=== PATIENT | female | born 1990 | race Two or more races ===

== ENCOUNTER 2022-09-03 12:44 | Observation (INO) | payer SELFPAY ==
[~2022-09-03] VITALS: Ht 408.9 cm; Wt 98.0 kg
[2022-09-03 14:16] LABS: Urine Bacteria MANY /hpf (None Seen); Urine Blood Negative /uL (Negative); Urine Specific Gravity 1.013 (1.001-1.035); Urine WBC 11 /hpf (0 - 5)
== END 2022-09-03 14:58 | disposition home or self-care (01) ==
LOC: LDRP 12:44 → UNDOADMOB 12:44 → LDRP 13:28 → UNDODISOB 14:58
PROVIDERS: ADMIT Obstetrics & Gynecology; ATTEND Obstetrics & Gynecology
DX: O62.9 Abnormality of forces of labor, unspecified (principal); Z3A.37 37 weeks gestation of pregnancy; Z98.891 History of uterine scar from previous surgery; Z79.899 Other long term (current) drug therapy
CPT/HCPCS: 59025; 76805; 81001; 81002; 84112; 94760; G0378; Q0114

== ENCOUNTER 2022-09-09 13:05 | Inpatient (IN) | payer SELFPAY ==
[~2022-09-09] VITALS: Ht 161 cm; Wt 90.7 kg
[2022-09-09] MEDS ORDERED: LACTATED RINGER'S 1,000 ML IV ONE (14:00)
[2022-09-09] MEDS ORDERED: ceFAZolin 1GM/50ML 50 ML IV ONE (14:00)
[2022-09-09 14:48] LABS: Basophils # (auto) 0 10 ^3/uL (0-0.2); Basophils % (auto) 0.3 % (0.0-2.0); Eosinophils # (auto) 0 10 ^3/uL (0-0.8); Eosinophils % (auto) 0.2 % (0.0-7.0); Hematocrit 36.9 % (36.0-46.0); Hemoglobin 12.5 g/dL (12.2-16.2); Lymphocytes # (auto) 1.8 10 ^3/uL (0.4-5.4); Lymphocytes % (auto) 19.1 % (10.0-50.0); Mean Corpuscular Hemoglobin 28.7 pg (28.0-32.0); Mean Corpuscular Volume 84.2 fL (80.0-100.0); Monocytes # (auto) 0.4 10 ^3/uL (0-1.3); Monocytes % (auto) 3.7 % (0.0-12.0); Neutrophils # (auto) 7.4 10 ^3/uL (1.6-8.6); Neutrophils % (auto) 76.7 % (37.0-80.0); Nucleated Red Blood Cells % 0.1 %; Red Blood Cells 4.38 10^6/uL (4.0-5.20); Red Cell Distribution Width 16.2 % (11.8-14.3); White Blood Cell 9.6 10^3/uL (4.4-10.8)
[2022-09-09 15:05] LABS: INR 0.91 (0.9-1.15); Partial Thromboplastin Time 25.4 sec (24.6-33.4)
[2022-09-09 15:12] LABS: Albumin 3.1 g/dL (3.4-5.0); Calcium 8.7 mg/dL (8.5-10.1); Potassium 3.6 mmol/L (3.5-5.1)
[2022-09-09 15:16] LABS: BUN/Creatinine Ratio 12.2 (10.0-20.0); Bilirubin, Total 0.6 mg/dL (0.2-1.0); Total Protein 6.6 g/dL (6.4-8.2)
[2022-09-09 15:29] LABS: Urine Bacteria FEW /hpf (None Seen); Urine Blood Negative /uL (Negative); Urine Mucus FEW (None Seen); Urine Specific Gravity 1.015 (1.001-1.035); Urine WBC 15 /hpf (0 - 5)
[2022-09-09] MEDS ORDERED: HYDR-4902 PO (15:37)
[2022-09-09] MEDS ORDERED: DOCU-94 PO (15:37)
[2022-09-09] MEDS ORDERED: IBUP800T27 PO (15:37)
[2022-09-09 15:38] LABS: Alcohol, Urine < 3.0 mg/dL (0-10); Amphetamine Screen, Urine NEGATIVE (NEGATIVE); Barbiturate Scree,Urine NEGATIVE (NEGATIVE); Benzodiazephine Screen, Urine NEGATIVE (NEGATIVE); Cannabinoid Screen, Urine NEGATIVE (NEGATIVE); Cocaine Screen, Urine NEGATIVE (NEGATIVE); Opiate Scree,Urine NEGATIVE (NEGATIVE); Phencyclidine Screen, Urine NEGATIVE (NEGATIVE)
[2022-09-09] MEDS: LACTATED RINGER'S 1,000 ML IV SCH (16:49)
[2022-09-09] MEDS ORDERED: ONDANSETRON HCL 4 MG/2 ML VIAL IV PRN ×3 (17:00→18:45)
[2022-09-09] MEDS ORDERED: LACT. RINGERS/OXYTOCIN 20UNITS 1,000 ML IV ONE ×2 (17:00→18:45)
[2022-09-09] MEDS ORDERED: ceFAZolin 1GM/50ML 50 ML IV SCH ×2 (17:00→18:45)
[2022-09-09] MEDS ORDERED: GUM (CHEWING) 1 GUM CHEW CHEW ONE ×2 (17:00→18:45)
[2022-09-09] MEDS ORDERED: MORPHINE SULF PF 5 MG/10 ML VIAL ONE (17:36)
[2022-09-09] MEDS ORDERED: fentaNYL CITRATE 100 MCG/2 ML VL ONE (17:38)
[2022-09-09] MEDS ORDERED: MIDAZOLAM HCL 2MG/2ML 2ml VIAL (1mg/ml) ONE (17:38)
[2022-09-09] MEDS ORDERED: oxyTOCIN 10 UNIT/ML 10ML VIAL ONE (18:11)
[2022-09-09] MEDS ORDERED: CARBOPROST TROMETHAMINE 250 MCG/1ML VIAL IM ONE (18:15)
[2022-09-09] MEDS ORDERED: NALOXONE HCL 0.4 MG/ML VIAL IV PRN (18:30)
[2022-09-09] MEDS ORDERED: MIDAZOLAM HCL 2MG/2ML 2ml VIAL (1mg/ml) IV PRN (18:30)
[2022-09-09] MEDS ORDERED: HYDROmorphone HCL 2 MG/ML VL/or syr IV PRN (18:30)
[2022-09-09] MEDS ORDERED: NALBUPHINE HCL 10 MG/1ml INJECTION SUBCUT ONE (18:30)
[2022-09-09] MEDS ORDERED: LABETALOL HCL 5 MG/ML 4ML SYRINGE IV PRN (18:30)
[2022-09-09] MEDS ORDERED: DexAMETHasone SOD PHOS 10MG/1ML VIAL INJ IV PRN (18:30)
[2022-09-09] MEDS ORDERED: diphenhdrAMINE HCL 50 MG/1 ML VL IV PRN (18:30)
[2022-09-09] MEDS ORDERED: ePHEDrine SULFATE 50 MG/ML AMP IV PRN ×2 (18:30→18:45)
[2022-09-09] MEDS ORDERED: MORPHINE SULFATE 4 MG/ML SYR/VIAL IV PRN (18:45)
[2022-09-09 19:17] LABS: Basophils # (auto) 0.2 10 ^3/uL (0-0.2); Basophils % (auto) 2.3 % (0.0-2.0); Eosinophils # (auto) 0 10 ^3/uL (0-0.8); Eosinophils % (auto) 0.2 % (0.0-7.0); Hemoglobin 11.8 g/dL (12.2-16.2); Lymphocytes # (auto) 1.4 10 ^3/uL (0.4-5.4); Lymphocytes % (auto) 15.1 % (10.0-50.0); Mean Corpuscular Hemoglobin 28.3 pg (28.0-32.0); Mean Corpuscular Hgb Conc. 33.6 g/dL (32.0-36.0); Mean Corpuscular Volume 84.2 fL (80.0-100.0); Monocytes # (auto) 0.3 10 ^3/uL (0-1.3); Monocytes % (auto) 3.7 % (0.0-12.0); Neutrophils % (auto) 78.7 % (37.0-80.0); Nucleated Red Blood Cells % 0.1 %; Red Blood Cells 4.16 10^6/uL (4.0-5.20); Red Cell Distribution Width 16.1 % (11.8-14.3); White Blood Cell 8.9 10^3/uL (4.4-10.8)
[2022-09-09 19:30] VITALS: BP 110/72
[2022-09-09 20:30] VITALS: BP 122/65
[2022-09-09 21:30] VITALS: BP 129/79
[2022-09-09] MEDS ORDERED: KETOROLAC TROMETH 30 MG/ML 1ML VIAL IV PRN (22:00)
[2022-09-09 22:30] VITALS: BP 127/72
[2022-09-09 23:30] VITALS: BP 123/65
[2022-09-09 23:40] LABS: Basophils # (auto) 0 10 ^3/uL (0-0.2); Basophils % (auto) 0.4 % (0.0-2.0); Eosinophils # (auto) 0 10 ^3/uL (0-0.8); Eosinophils % (auto) 0.3 % (0.0-7.0); Hematocrit 36.5 % (36.0-46.0); Hemoglobin 12.1 g/dL (12.2-16.2); Lymphocytes % (auto) 17.2 % (10.0-50.0); Mean Corpuscular Hemoglobin 28.2 pg (28.0-32.0); Mean Corpuscular Hgb Conc. 33.1 g/dL (32.0-36.0); Mean Corpuscular Volume 85.3 fL (80.0-100.0); Monocytes # (auto) 0.6 10 ^3/uL (0-1.3); Monocytes % (auto) 5.1 % (0.0-12.0); Neutrophils # (auto) 9.1 10 ^3/uL (1.6-8.6); Nucleated Red Blood Cells % 0.2 %; Red Blood Cells 4.28 10^6/uL (4.0-5.20); White Blood Cell 11.8 10^3/uL (4.4-10.8)
[2022-09-10] VITALS (13 sets, daily range): BP systolic 103–132; BP diastolic 59–84
[2022-09-10] MEDS: ceFAZolin 1GM/50ML 50 ML IV SCH ×3 (00:56→16:41)
[2022-09-10] MEDS ORDERED: ceFAZolin 1GM/50ML 50 ML IV SCH (01:00)
[2022-09-10] MEDS: LACTATED RINGER'S 1,000 ML IV SCH (04:56)
[2022-09-10 06:06] LABS: RPR Non Reactive (Non Reactive)
[2022-09-10 06:56] LABS: Basophils # (auto) 0 10 ^3/uL (0-0.2); Basophils % (auto) 0.4 % (0.0-2.0); Eosinophils # (auto) 0.1 10 ^3/uL (0-0.8); Eosinophils % (auto) 0.6 % (0.0-7.0); Hematocrit 32.2 % (36.0-46.0); Hemoglobin 11.1 g/dL (12.2-16.2); Lymphocytes # (auto) 1.5 10 ^3/uL (0.4-5.4); Lymphocytes % (auto) 14.4 % (10.0-50.0); Mean Corpuscular Hemoglobin 29.2 pg (28.0-32.0); Mean Corpuscular Hgb Conc. 34.5 g/dL (32.0-36.0); Mean Corpuscular Volume 84.6 fL (80.0-100.0); Monocytes # (auto) 0.6 10 ^3/uL (0-1.3); Monocytes % (auto) 5.6 % (0.0-12.0); Neutrophils # (auto) 8.1 10 ^3/uL (1.6-8.6); Red Blood Cells 3.81 10^6/uL (4.0-5.20); Red Cell Distribution Width 16.2 % (11.8-14.3); White Blood Cell 10.2 10^3/uL (4.4-10.8)
[2022-09-10 08:06] LABS: Rubella Antibodies, IgG <0.90 index (Immune >0.99)
[2022-09-10] MEDS: DOCUSATE SOD 100 MG CAP PO SCH ×2 (08:31→22:02)
[2022-09-10] MEDS ORDERED: DOCUSATE CALCIUM 240 MG CAP PO SCH (10:00)
[2022-09-10] MEDS ORDERED: HYDROcodone-ACET 5/325MG TAB PO PRN (10:30)
[2022-09-10] MEDS: SIMETHICONE 80 MG CHEWABLE TABLET PO SCH ×2 (11:19→22:02)
[2022-09-10] MEDS: HYDROcodone-ACET 5/325MG TAB PO PRN (11:20)
[2022-09-10] MEDS: IBUPROFEN 800 MG TAB PO PRN (13:22)
[2022-09-10] MEDS ORDERED: PREN-96 PO (20:36)
[2022-09-11] MEDS: HYDROcodone-ACET 5/325MG TAB PO PRN (01:10)
[2022-09-11 02:25] VITALS: BP 121/76
[2022-09-11 03:00] VITALS: BP 122/78
[2022-09-11 07:00] VITALS: BP 109/66
[2022-09-11] MEDS: IBUPROFEN 800 MG TAB PO PRN (07:41)
[2022-09-11] MEDS: SIMETHICONE 80 MG CHEWABLE TABLET PO SCH ×3 (09:21→18:00)
[2022-09-11 11:30] VITALS: BP_SYST 114; BP_SYST 125; BP_DIAS 66; BP_DIAS 75
[2022-09-11] MEDS: DOCUSATE SOD 100 MG CAP PO SCH (13:02)
[2022-09-11 15:15] VITALS: BP 124/76
[2022-09-11 18:35] VITALS: BP 121/70
== END 2022-09-11 19:15 | disposition home or self-care (01) | DRG 788 ==
LOC: UNDOADMOB 13:05 → LDRP 13:05 → INTOOBSV 13:56 → OBSVTOIN 13:56 → LDRP 14:04
PROVIDERS: ADMIT Obstetrics & Gynecology; ATTEND Obstetrics & Gynecology
PROC: 10D00Z1 Extraction of Products of Conception, Low, Open Approach (ICD-10-PCS; principal; 2022-09-09 17:52)
DX: O48.0 Post-term pregnancy (principal); O34.211 Maternal care for low transverse scar from previous cesarean delivery; Z37.0 Single live birth; Z3A.40 40 weeks gestation of pregnancy
CPT/HCPCS: 36415; 59025; 80053; 80307; 81001; 81002; 84112; 85025; 85610; 85730; 86592; 86703; 86762; 86850; 86900; 86901; 87340; 94760; 94762; 96360; 96361; 96365; 96366; 96375; G0378; J0690; J1885; J2250; J2590